=== PATIENT | female | born 1940 | race African-American/Black ===

== ENCOUNTER 2017-08-25 08:35 | Inpatient (IN) | payer OTHER ==
[2017-08-18 12:11] VITALS: BMI 33.6
--- NOTE | 2017-08-25 07:40 | HP ---
Admitting History and Physical - Admission Chief Complaint: right hip osteoarthritis x years History of Present Illness: 76 year old female presents today in regard to her right hip. Longstanding history of right hip osteoarthritis. Patient complains of pain, limited ROM, difficulty ambulating and difficulty with ADLS including putting on her socks and shoes. She has failed conservative treatment measures including PO medication, activity modification, injections and exercise program. As patient has failed conservative treatment measures, patient would like to proceed with a right total hip arthroplasty, MAKOplasty. History Source: Patient - Past Medical History Cardiovascular: Yes: HTN, Hyperlipdemia Musculoskeletal: Yes: Osteoarthritis - Past Surgical History Additional Past Surgical History: See written H&P for past surgical history - Smoking History Smoking history: Former smoker Have you smoked in the past 12 months: No If you are a former smoker, when did you quit?: OVER 20 YEARS AGO - Alcohol/Substance Use Hx Alcohol Use: (RARELY) Home Medications - Allergies Allergies/Adverse Reactions: Allergies Allergy/AdvReac Type Severity Reaction Status Date / Time No Known Allergies Allergy Verified 08/18/17 11:59 - Home Medications Home Medications: Ambulatory Orders Glucosamine/Chondr Florian A Sod [Osteo Bi-Flex Caplet] 1 each PO HS 08/18/17 Lovastatin 40 mg PO Q48H 08/18/17 Valsartan/Hydrochlorothiazide [Valsartan-Hctz 80-12.5 mg Tab] 1 each PO ASDIR Review of Systems - Review of Systems Musculoskeletal: reports: Decreased ROM (right hip), Joint Pain (right hip) Physical Examination Constitutional: Yes: Well Nourished, No Distress Eyes: Yes: Conjunctiva Clear HENT: Yes: Atraumatic, Normocephalic Neck: Yes: Supple Cardiovascular: Yes: Regular Rate and Rhythm Respiratory: Yes: Regular Gastrointestinal: Yes: Soft ...Rectal Exam: Yes: Deferred Musculoskeletal: Yes: Joint Stiffness (right hip) Assessment/Plan 76 year old female presents today in regard to her right hip. Longstanding history of right hip osteoarthritis. Patient complains of pain, limited ROM, difficulty ambulating and difficulty with ADLS including putting on her socks and shoes. She has failed conservative treatment measures including PO medication, activity modification, injections and exercise program. Pros, cons, risks, benefits and alternatives of a right total hip arthroplasty, MAKOplasty were discussed with the patient in detail. Patient confirms her understanding and consents to proceed with a right total hip arthroplasty, MAKOplasty.
[~2017-08-25 08:35] MED LIST: CELECOXIB 200 MG CAPSULE PO ONE; GABAPENTIN 300 MG CAPSULE (FP) PO ONE; PANTOPRAZOLE 40 MG TABLET (FP) PO ONE; oxyCODONE HCL 10 MG SUSTAINED ACTING TABLET PO ONE
[2017-08-25] MEDS ORDERED: MIDAZOLAM HCL 2 MG/2 ML SINGLE DOSE VIAL ONE ×2 (10:44→13:31)
[2017-08-25] MEDS ORDERED: DEXAMETHASONE SOD PHOSPHATE/PF 10 MG/ML SDV ONE (10:44)
[2017-08-25] MEDS ORDERED: LIDOCAINE 1% P/F 10 MG/ML VIAL ONE (10:44)
[2017-08-25] MEDS ORDERED: BUPIVACAINE HCL/PF (5 MG/ML) 30 ML VIAL IJ ONE (10:45)
[2017-08-25] MEDS ORDERED: TRANEXAMIC ACID 1000 MG/10 ML VIAL ONE ×3 (10:50→15:43)
[2017-08-25] MEDS ORDERED: ROPIVICAINE 0.2%/MORPH PF/KETOROLAC - 51ML DISP.SYRINGE IA ONE ×2 (10:51→11:30)
[2017-08-25] MEDS ORDERED: VANCOMYCIN 1,000 MG VIAL (RESTRICTED TO ID ONLY) ONE (10:51)
[2017-08-25] MEDS ORDERED: ceFAZolin SODIUM 1 GM VIAL ONE ×4 (10:51→17:47)
[2017-08-25] MEDS ORDERED: TRANEXAMIC ACID 1000 MG/10 ML VIAL IVPUSH ONE (11:30)
[2017-08-25] MEDS ORDERED: CEFAZOLIN 2 GM in DEXTROSE 5%-WATER - 50 ML IVPB ONE (11:30)
[2017-08-25] MEDS ORDERED: ONDANSETRON 4 MG/2 ML VIAL ONE ×2 (12:55→16:29)
[2017-08-25] MEDS ORDERED: DEXAMETHASONE SOD PHOSPHATE 4 MG/1 ML VIAL ONE (12:55)
[2017-08-25] MEDS ORDERED: ONDANSETRON 4 MG/2 ML VIAL IVPUSH PRN ×2 (13:51→17:10)
[2017-08-25] MEDS ORDERED: oxyCODONE HCL 5 MG TABLET PO PRN ×2 (14:06)
[2017-08-25] MEDS ORDERED: ACETAMINOPHEN 325 MG TABLET (FP) PO SCH (14:15)
--- NOTE | 2017-08-25 16:55 | OP ---
Operative Note - Note: Operative Date: 08/25/17 Pre-Operative Diagnosis: right hip OA Operation: right RITESH Post-Operative Diagnosis: Same as Pre-op Surgeon: Jose Guadalupe Ragland Bridge Maintainer: Jaylyn Bateman Anesthesia: Spinal Estimated Blood Loss (mls): 500
[2017-08-25] MEDS ORDERED: PATIENT'S OWN MEDICATION (NON-FORMULARY) (Valsartan/Hydrochlorothiazide [Valsartan-Hctz 80 PO SCH (17:00)
[2017-08-25] MEDS ORDERED: MAGNESIUM HYDROX 2400MG/30ML ORAL SUSPENSION 30 ML CUP PO PRN (17:10)
[2017-08-25] MEDS ORDERED: MAG HYDROX/AL HYDROX/SIMETH 30 ML UNIT-DOSE CUP PO PRN (17:10)
[2017-08-25] MEDS ORDERED: ACETAMINOPHEN 1000 MG/100 ML VIAL (NON FORMULARY) IVPB ONE (17:13)
[2017-08-25] MEDS ORDERED: LACTATED RINGERS SOLUTION 1,000 ML IV SCH (17:15)
[2017-08-25] MEDS: KETOROLAC TROMETHAMINE 30 MG/1 ML VIAL IVPUSH SCH (17:30)
[2017-08-25] MEDS ORDERED: traMADol HCL 50 MG TABLET PO SCH (18:00)
--- NOTE | 2017-08-25 21:30 | SPEC ---
DATE OF OPERATION: 08/25/2017 PREOPERATIVE DIAGNOSIS: Right hip osteoarthritis. POSTOPERATIVE DIAGNOSIS: Right hip osteoarthritis. PROCEDURE: Right total hip replacement with MAKOplasty robotic navigation. ATTENDING: Eda Zavala MD WIRE THREADER: YANA Mckenna ANESTHESIA: Spinal plus sedation. ESTIMATED BLOOD LOSS: 500 mL COMPLICATIONS: None. SPECIMENS: Resected bone was sent for pathological analysis. DISPOSITION: The patient was transferred to the PACU in stable condition. IMPLANTS USED: Charis Accolade II size 4 femoral component, [place] Tritanium 48-mm acetabular component with 3 acetabular screws, MEDICAL DECISION MAKING bipolar head ball 36-mm outer ball with 22 plus 8-mm inner ball. INDICATIONS: This is a 76-year-old female who presented to the office complaining of severe right hip pain. She was seen and examined by Dr. Zavala and diagnosed with severe right hip osteoarthritis. The patient was initially treated conservatively with nonoperative management but failed conservative treatment. She was subsequently indicated for a right total hip replacement with MAKOplasty robotic navigation. The risks, benefits, and alternatives to the surgery were explained to the patient in great detail, and she elected to proceed with the surgery. On the day of surgery, the patient was taken to the operating room and placed supine on the OR table. Spinal anesthesia was administered by the anesthesiologist. The patient was then positioned in the lateral decubitus position on the table and all bony prominences were padded. An axillary roll was placed. The operative hip was then prepped and draped in the usual sterile fashion and intravenous antibiotics were given for infection prophylaxis. A surgical time-out was then performed with the team, and the patients identity, procedure, side, availability of implants, and the administration of antibiotics were confirmed. An approximately 15-cm longitudinal incision was made through the skin centered on the greater trochanter of the hip. This dissection was carried down through the subcutaneous tissues to the deep fascia. This fascia was then incised and a Cobra was placed around the inferior femoral neck. Electrocautery was used to reflect the anterior 40% of the gluteus medius and minimus starting at the musculotendinous junction and leaving a cuff for closure. This was reflected to reveal the capsule of the hip joint. An anterior capsulectomy was performed and the femoral head and neck were visualized. Grade 4 changes were noted diffusely throughout the joint. At this point, three small stab incisions were made superior to the main incision along the iliac crest. Three self-drilling Steinmann pins were then placed and the [email or web address] pelvic array was attached. Reference points on the limb were then entered into the robotic device and the limb length deficiency, offset, and femoral neck resection level were then calculated by the software. The hip was then dislocated with traction and external rotation. An oscillating saw was used to make the femoral neck cut at the level previously templated, and the femoral head was removed. Attention was then turned to the acetabulum. Retractors were then placed around the acetabulum and the labrum was removed. An acetabular checkpoint pin and the [email or web address] software were used to register the contours of the acetabulum. The acetabulum was then reamed in a single stage to the preoperatively templated size using the [email or web address] robotic arm. The appropriately sized cup was then impacted and had solid fixation as well as the preset inclination and version of 40 and 20 degrees, respectively. A polyethylene liner was then placed in the cup. Attention was then turned back to the femur, which was externally rotated for improved visualization. A femoral neck elevator was used to present the femoral neck cut, a box osteotome was used to enter the femoral canal, and a canal finder was used to go down the femoral shaft. The Robert broaches were used sequentially until the optimal scratch fit was achieved. This correlated with the preoperatively templated size. From here, several different offset head and neck configurations were tested until excellent stability and length were obtained. These measurements were quantified using the [email or web address] software. All trial components were then removed, the femur was copiously irrigated, and the final components were placed. Leg length and stability were checked again and found to be excellent. Irrigation was performed again. Wound closure was started by repairing the abductor muscles with a no. 2 FiberWire stitch in a Krackow configuration passed through bone tunnels in the greater trochanter and tied over a bony bridge. This repair was then reinforced with a 0 V-Loc 180 barbed suture. Next, no. 1 Polysorb and 0 V-Loc 180 were used to close the fascia. The deep subcutaneous tissue was closed with no. 1 Polysorb sutures, and 2-0 Polysorb was used for the superficial subcutaneous tissue. The skin was closed using both 3-0 V-Loc 90 suture in a running subcuticular fashion and SwiftSet skin adhesive. The Robert array and pins were removed from the iliac crest and the stab incision sites were irrigated and closed with 4-0 Polysorb sutures and SwiftSet skin adhesive. Once this was completed, a sterile dressing was applied. The patient was then awakened and taken to the PACU in stable condition. ADDENDUM: After final implants were placed, a 3-minute dilute Betadine lavage was performed. Following this, the wound was thoroughly irrigated with normal saline containing Ancef in a concentration of 1 g/L for a total of 3 L via pulsatile lavage. After this, wound closure was begun. EDA ZAVALA M.D. [id number]
[2017-08-25] MEDS: oxyCODONE HCL 10 MG SUSTAINED ACTING TABLET PO SCH (21:54)
[2017-08-25] MEDS: SENNOSIDES/DOCUSATE COMBO (SENNA PLUS) TABLET (UD) PO SCH (21:55)
[2017-08-25] MEDS: CELECOXIB 200 MG CAPSULE PO SCH (21:55)
[2017-08-25] MEDS: GABAPENTIN 300 MG CAPSULE (FP) PO SCH (21:55)
[2017-08-25] MEDS: ASCORBIC ACID 500 MG TABLET (FP) PO SCH (21:56)
[2017-08-25] MEDS ORDERED: ATORVASTATIN CA 10 MG TABLET (FP) PO SCH (22:00)
[2017-08-26] MEDS: traMADol HCL 50 MG TABLET PO SCH ×5 (00:56→23:43)
[2017-08-26] MEDS: ACETAMINOPHEN 325 MG TABLET (FP) PO SCH ×5 (00:57→23:43)
[2017-08-26] MEDS: KETOROLAC TROMETHAMINE 30 MG/1 ML VIAL IVPUSH SCH ×3 (00:58→11:57)
[2017-08-26] MEDS ORDERED: DEXAMETHASONE SOD PHOSPHATE 10 MG/1 ML VIAL IVPB ONE (01:00)
[2017-08-26] MEDS: CEFAZOLIN 2 GM/D5W 2 GM/50 ML ML IVPB SCH ×2 (02:11→09:58)
[2017-08-26] MEDS: LACTATED RINGERS SOLUTION 1,000 ML IV SCH ×2 (07:12→14:09)
[2017-08-26 07:44] LABS: HEMATOCRIT 30.9 % (32.4-45.2); HEMOGLOBIN 10.1 GM/dl (10.7-15.3); MCH 29.8 pg (25.7-33.7); MCHC 32.7 g/dl (32.0-36.0); MEAN PLT VOLUME 7.5 fl (7.5-11.1); PLATELET COUNT 221 K/MM3 (134-434); RBC 3.39 M/mm3 (3.60-5.2); RDW 13.8 % (11.6-15.6); WHITE BLOOD COUNT 10.7 K/mm3 (4.0-10.8)
[2017-08-26 08:10] LABS: ANION GAP 4 (8-16); BLOOD UREA NITROGEN 18 mg/dl (7-18); CALCIUM 8.4 mg/dl (8.4-10.2); CHLORIDE 106 mmol/L (98-107); CO2 24 mmol/L (22-28); CREATININE 0.9 mg/dl (0.6-1.3); GLUCOSE,RANDOM 183 mg/dl (74-106); POTASSIUM 4.3 mmol/L (3.5-5.1); SODIUM 134 mmol/L (136-145)
[2017-08-26] MEDS: ASPIRIN 325 MG TABLET PO SCH (08:14)
[2017-08-26] MEDS: CELECOXIB 200 MG CAPSULE PO SCH ×2 (09:58→22:01)
[2017-08-26] MEDS: MULTIVITAMINS (DAILY MVI) TABLET (FP) PO SCH (09:58)
[2017-08-26] MEDS: SENNOSIDES/DOCUSATE COMBO (SENNA PLUS) TABLET (UD) PO SCH ×2 (09:58→21:34)
[2017-08-26] MEDS: PANTOPRAZOLE 40 MG TABLET (FP) PO SCH (09:58)
[2017-08-26] MEDS: GABAPENTIN 300 MG CAPSULE (FP) PO SCH ×2 (09:58→21:34)
[2017-08-26] MEDS: ASCORBIC ACID 500 MG TABLET (FP) PO SCH ×2 (09:58→21:34)
[2017-08-26] MEDS: oxyCODONE HCL 10 MG SUSTAINED ACTING TABLET PO SCH ×2 (09:59→21:33)
--- NOTE | 2017-08-26 12:10 | PN ---
Progress Note (short form) - Note Progress Note: 76F POD1 s/p right THR under spinal anesthetic with peripheral nerve blocks for post operative pain relief. Pt states that pain is well controlled and reports no anesthetic complications. AVSS. Sensory and motor function intact in bilateral lower extremities. Continue current regimen.
[2017-08-27] MEDS: traMADol HCL 50 MG TABLET PO SCH ×2 (06:00→12:00)
[2017-08-27] MEDS: ACETAMINOPHEN 325 MG TABLET (FP) PO SCH ×2 (06:00→12:02)
[2017-08-27 06:42] VITALS: BP 124/58; PULSE 88; TEMP 98.3
[2017-08-27] MEDS: ASPIRIN 325 MG TABLET PO SCH (08:42)
--- NOTE | 2017-08-27 08:45 | DS ---
Physical Examination Vital Signs: Vital Signs Temperature 98.3 F 08/27/17 06:40 Pulse Rate 88 08/27/17 06:40 Respiratory Rate 19 08/27/17 06:40 Blood Pressure 124/58 08/27/17 06:40 O2 Sat by Pulse Oximetry (%) 95 08/27/17 08:09 Labs: CBC, BMP 08/26/17 07:30 Discharge Summary Reason For Visit: RIGHT HIP ARTHRITIS Current Active Problems Osteoarthritis of right hip (Acute) Procedures: Principal: right EDMUND RITESH Hospital Course: Admitted for elective surgery. Procedure performed without complications. Pt received postoperative antibiotic prophylaxis and DVT ppx. Ambulated with physical therapy. Stable for discharge home with outpatient followup. Condition: Stable - Instructions Diet, Activity, Other Instructions: Dr Ragland - Hip Replacement Instructions Keep the Aquacel dressing on until removed by Dr. Ragland in 10-14 days - it is antibacterial and waterproof and you can shower with it on. Call the office for a follow-up appointment with Dr. Ragland in 10-14 days. Take one Aspirin 325mg daily for 6 weeks to prevent blood clots in your legs. Take one Pantoprazole 40mg daily for 6 weeks to protect against heartburn and ulcers. Take Celebrex 200mg once daily for 30 days to reduce swelling and inflammation. Take Cephalexin (antibiotic) 3x/day for 10 days to help prevent skin infection. Take a multivitamin, stool softener, and extra vitamin C supplement daily. For pain: *Mild pain (1-3/10): Take 1 Tramadol tablet every 4 hours as needed. Moderate pain (4-6/10): Take 1 Tramadol tablet and 1 Percocet tablet every 4 hours as needed. Severe pain (7-10/10): Take 1 Tramadol tablet and 2 Percocet tablets every 4 hours as needed. Activity: You can put as much weight on the operative leg as you want. For the first 6 weeks, all you need to do is walk around the house, go up/down stairs, and sit down/get up. After 6 weeks when everything is healed (and bone has grown into the implant) you will be sent for more intensive outpatient physical therapy. Always use a walker or cane for balance and to prevent falls. Expect to see swelling/bruising from the hip all the way down to your toes. Wear the compression stocking on the right side during the day to minimize how much swelling there is in your foot/ankle. Don't wear the stocking at night. You don't have to wear a stocking on the left side. Disposition: VNS/HOME HEALTH CARE - Home Medications Comprehensive Discharge Medication List: Ambulatory Orders Glucosamine/Chondr Florian A Sod [Osteo Bi-Flex Caplet] 1 each PO HS 08/18/17 Lovastatin 40 mg PO Q48H 08/18/17 Valsartan/Hydrochlorothiazide [Valsartan-Hctz 80-12.5 mg Tab] 1 each PO ASDIR Ascorbic Acid [Vitamin C -] 500 mg PO BID tablet 08/27/17 Aspirin [ASA -] 325 mg PO DAILY@0800 tablet 08/27/17 Celecoxib [CeleBREX -] 200 mg PO DAILY #30 capsule 08/27/17 Cephalexin Monohydrate [Keflex -] 500 mg PO TID #30 capsule 08/27/17 Multivitamins [Multivit ([facility] Formulary)] 1 tab PO DAILY tab 08/27/17 Oxycodone HCl/Acetaminophen [Percocet 5-325 mg Tablet] 1 - 2 tab PO Q4H PRN #60 tablet MDD 8 08/27/17 Pantoprazole Sodium [Protonix -] 40 mg PO DAILY #40 tablet.ec 08/27/17 Sennosides/Docusate Sodium [Pericolace -] 1 tablet PO BID tablet 08/27/17 traMADol HCL [Ultram -] 50 mg PO Q4H PRN #90 tablet MDD 6 08/27/17
[2017-08-27 08:58] LABS: HEMATOCRIT 27.6 % (32.4-45.2); HEMOGLOBIN 9.3 GM/dl (10.7-15.3); MCH 30.8 pg (25.7-33.7); MCHC 33.6 g/dl (32.0-36.0); MEAN CELL VOLUME 91.8 fl (80-96); MEAN PLT VOLUME 8.3 fl (7.5-11.1); PLATELET COUNT 217 K/MM3 (134-434); RBC 3.01 M/mm3 (3.60-5.2); RDW 14.1 % (11.6-15.6); WHITE BLOOD COUNT 12.5 K/mm3 (4.0-10.8)
[2017-08-27] MEDS: oxyCODONE HCL 10 MG SUSTAINED ACTING TABLET PO SCH (09:12)
[2017-08-27] MEDS: MULTIVITAMINS (DAILY MVI) TABLET (FP) PO SCH (09:12)
[2017-08-27] MEDS: GABAPENTIN 300 MG CAPSULE (FP) PO SCH (09:12)
[2017-08-27] MEDS: SENNOSIDES/DOCUSATE COMBO (SENNA PLUS) TABLET (UD) PO SCH (09:12)
[2017-08-27] MEDS: PANTOPRAZOLE 40 MG TABLET (FP) PO SCH (09:13)
[2017-08-27] MEDS: CELECOXIB 200 MG CAPSULE PO SCH (09:13)
[2017-08-27] MEDS: ASCORBIC ACID 500 MG TABLET (FP) PO SCH (09:13)
[2017-08-28] MEDS ORDERED: HYDROCHLOROTHIAZIDE 12.5 MG CAPSULE (FP) PO SCH (10:00)
[2017-08-28] MEDS ORDERED: VALSARTAN 80 MG TABLET (UD) PO SCH (10:00)
--- NOTE | 2017-08-29 16:52 | PATH ---
Surgical Pathology Report Patient Name: TAQUERIA SERRA Med. Rec. #: [id number] /Age/Gender: 1940 (Age: 76) / F Account: [id number] Location: [facility] Taken: 08/26/2017 Received: 08/26/2017 Reported: 08/29/2017 Physicians: Jose Guadalupe Ragland M.D. Specimen(s) Received RIGHT FEMORAL HEAD Clinical History The Right hip arthritis Final Diagnosis FEMORAL HEAD, RIGHT, TOTAL HIP REPLACEMENT: DEGENERATIVE JOINT DISEASE. Electronically Signed Francisca Mahan M.D. Gross Description Received in formalin labelled "right femoral head" is a 5.1 x 4.7 x 4.7 cm portion of bone consistent with a femoral head. The articular cartilage is markedly irregular and there is a 3.2 cm in greatest dimension area of eburnation, as well as bony spurring at the periphery. The bone at the femoral neck is firm and uniform. A small amount of attached soft tissue is present. Pop Singer sections are submitted one cassette for decalcification. [facility]/08/28/2017 [facility]/08/28/2017
== END 2017-08-27 13:00 | disposition home health service (06) | DRG 470 ==
LOC: FM/S 08:35
PROVIDERS: ADMIT Student in an Organized Health Care Education/Training Program; ATTEND Student in an Organized Health Care Education/Training Program
PROC: 8E0W0CZ Robotic Assisted Procedure of Trunk Region, Open Approach (ICD-10-PCS; 2017-08-25)
PROC: 0SR90JZ Replacement of Right Hip Joint with Synthetic Substitute, Open Approach (ICD-10-PCS; principal; 2017-08-25 13:11)
DX: M16.11 Unilateral primary osteoarthritis, right hip (principal); I10 Essential (primary) hypertension; E78.5 Hyperlipidemia, unspecified; Z87.891 Personal history of nicotine dependence
CPT/HCPCS: 36415; 73523-TC-FY; 80048; 85027; 86850; 86900; 86901; 94010; 94760; 97116-GP; 97162-GP; J0131; J1100